=== PATIENT | male | born 1970 | race Caucasian/White ===

== ENCOUNTER 2018-06-18 13:50 | Emergency (ER) | payer BC, OTHER ==
[2018-06-18] MEDS ORDERED: MOTRIN 400 MG PO ONE (14:22)
[2018-06-18 14:27] VITALS: BP 118/78; PULSE 62; O2SAT 95
--- NOTE | 2018-06-18 14:27 | ERPHSYRPT ---
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 He denies fall , other injury, no headaches, neck pain, arm numbness or slurred speech. Occurred: just prior to arrival Method of Injury: other (lifting) Quality: constant Severity of Pain-Max: severe Severity of Pain-Current: severe Extremities Pain Location: arm: right Modifying Factors: Improves With: immobilization, movement Associated Symptoms: none Allergies/Adverse Reactions: No Known Drug Allergies Allergy (Verified 06/18/18 14:27) Home Medications: Losartan Potassium 50 mg [Cozaar 50 MG] 50 mg PO DAILY 06/18/18 [History] - Review of Systems Constitutional: No Symptoms Ears, Nose, & Throat: No Symptoms Respiratory: No Symptoms Cardiac: No Symptoms Abdominal/Gastrointestinal: No Symptoms Genitourinary Symptoms: No Symptoms Musculoskeletal: Other (right upper arm pain) Skin: No Symptoms Neurological: No Symptoms All Other Systems: Reviewed and Negative - Nursing Vital Signs Nursing Vital Signs: Initial Vital Signs Pulse Rate 62 06/18/18 14:13 Blood Pressure 118/78 06/18/18 14:13 O2 Sat by Pulse Oximetry 95 06/18/18 14:13 Pain Scale Pain Intensity 10 - Physical Exam General Appearance: no apparent distress Eyes, Ears, Nose, Throat Exam: normal ENT inspection Neck Exam: normal inspection, non-tender, supple, No JVD Cardiovascular/Respiratory Exam: chest non-tender, normal breath sounds, regular rate/rhythm, heart sounds normal, No no ecchymosis Abdominal Exam: non-tender Back Exam: normal inspection, No CVA tenderness Shoulder Exam: normal inspection, non-tender, pain (right upper arm: distal biceps area with a dent and localized tenderness, unable to flex elbow) Elbow/Forearm Exam: normal inspection Wrist Exam: normal inspection Neuro/Tendon Exam: normal motor functions Mental Status Exam: alert, oriented x 3, cooperative Skin Exam: normal color, warm, dry, No rash, No petechiae SpO2 Interpretation: normal O2 Delivery: Room Air - Course Nursing assessment & vital signs reviewed: Yes - Radiology Exams Right Humerus X-ray Interpretation: Interpreted by me, Negative Ordered Tests: Active Orders 24 hr Category Date Time Status Sling Application STAT Care 06/18/18 14:50 Ordered HUMERUS Stat Exams 06/18/18 14:22 Ordered Medication Summary Generic Name Dose Route Start Last Admin Trade Name Galilea PRN Reason Stop Dose Admin Cyclobenzaprine HCl 10 mg 06/18/18 14:49 Cyclobenzaprine 10 Mg PO 06/18/18 14:50 STAT ONE Discontinued Medications Generic Name Dose Route Start Last Admin Trade Name Freq PRN Reason Stop Dose Admin Ibuprofen 800 mg 06/18/18 14:22 Motrin 400 Mg PO 06/18/18 14:23 STAT ONE Ibuprofen Confirm 06/18/18 14:32 Motrin 400 Mg Administered 06/18/18 14:33 Dose 800 mg .ROUTE .STK-MED ONE - Progress Progress: improved Progress Note: 06/18/18 14:50 Pt was given Motrin 800 mg and Flexeril 10 mg , reviewed his X ray result, his right arm was placed in a sling, and discharged to rest with elevated arm, and follow up with Orthopedic surgeon at [facility], Orthopedic clinic, in [place] in 2 -3 days. Counseled pt/family regarding: diagnosis, need for follow-up (with Orthopedic surgeon), rad results - Departure Departure Disposition: Home Clinical Impression: Biceps rupture, distal Qualifiers: Encounter type: initial encounter Laterality: right Qualified Code(s): S46.211A - Strain of muscle, fascia and tendon of other parts of biceps, right arm, initial encounter Condition: Stable Critical Care Time: No Instructions: Biceps Tendinopathy Additional Instructions: Rest in sling x 3-4 days, apply ice or cold compresses to painful muscle, and follow up with Orthopedic surgeon in 2-3 days ( [facility] in [place] ) return if severe pain, swelling, sudden severe coldness, discoloration of the fingers! Prescriptions: Cyclobenzaprine HCl 10 mg [Cyclobenzaprine 10 MG] 10 mg PO TID #30 tablet Tramadol HCl 50 mg [Ultram 50 mg] 50 mg PO Q6H PRN #15 tablet PRN Reason: Pain
[2018-06-18] MEDS ORDERED: MOTRIN 400 MG ONE (14:32)
[2018-06-18] MEDS ORDERED: Cyclobenzaprine 10 MG PO ONE (14:49)
[2018-06-18] MEDS ORDERED: Cyclobenzaprine 10 MG ONE (14:57)
--- NOTE | 2018-06-18 20:01 | XRAY ---
Indication: Pain after lifting. Comparison: None 2 views of the right humerus demonstrate mild AC degenerative arthropathy. No other bony, articular, or soft tissue abnormalities.
== END 2018-06-18 15:38 | disposition home or self-care (01) ==
LOC: ED 13:50
DX: S46.211A Strain of muscle, fascia and tendon of other parts of biceps, right arm, initial encounter (principal); X50.9XXA Other and unspecified overexertion or strenuous movements or postures, initial encounter; Y93.89 Activity, other specified; R42 Dizziness and giddiness; M79.621 Pain in right upper arm
CPT/HCPCS: 73060; 99283; A9270-GY

== ENCOUNTER 2020-10-07 08:40 | Emergency (ER) | payer BC ==
[2020-10-07] MEDS ORDERED: Catapres 0.1 MG PO ONE (08:43)
[2020-10-07] MEDS ORDERED: Catapres 0.1 MG ONE (08:56)
[2020-10-07 09:11] LABS: Absolute Neutrophil Ct (ANC) 4.68 (1.4-6.9); BASOPHIL % 0.3 % (0.0-0.4); Basophil (Absolute #) 0.02 (0-0.4); Eosinophil % 4.1 % (0.00-5.0); Hematocrit 55.7 % (42-50); Hemoglobin 18.6 gm/dl (12.5-18.0); Lymphocyte (Absolute #) 1.48 (1.0-4.6); Lymphocytes % 20.3 % (24.0-44.0); Mean Corpuscular Hemoglobin 30.4 pg (26-32); Mean Corpuscular Hgb Concent. 33.4 g/dl (32-36); Mean Platelet Volume 11.7 fl (7.5-11.0); Monocyte (Absolute #) 0.81 (0.0-1.3); Monocytes % 11.1 % (0.0-12.0); Neutrophil % 64.2 % (36.0-66.0); Platelet Count 146 K/mm3 (150-450); Red Blood Count 6.12 M/mm3 (4.1-5.6); Red Cell Distribution Width 13.6 % (11.5-14.0); White Blood Count 7.3 K/mm3 (4.0-10.5)
--- NOTE | 2020-10-07 09:24 | XRAY ---
Indication: Cough. Comparison: None Portable apical lordotic chest demonstrates normal heart and lungs. Bony thorax intact.
[2020-10-07] MEDS ORDERED: DUONEB 0.5-3 MG/3 ml Neb IH ONE ×2 (09:32→09:39)
--- NOTE | 2020-10-07 09:32 | ERPHSYRPT ---
- History of Present Illness Source: patient, other () Exam Limitations: no limitations Patient Subjective Stated Complaint: Pt states "I have been sick since wednesday and I went to [facility] and they sent me here." Triage Nursing Assessment: Pt presented alert and oriented X 3, skin pwd Pt ambulates with an upright steady gait, able to speak in clear full sentences pt has congestion as well. Physician History: 50 yo wm w dyspnea x 3 days/cough x1wk, nonproductive/Did not get CV19/Denies N/V/D/melena/hematochezia/ w recent URI w neg CV19 test/Pt smokes 1ppd/Pt does feel some chest pressure wo radiation. Timing/Duration: other (1wk) Severity of Dyspnea-Max: moderate Severity of Dyspnea-Current: mild Possible Cause: occasional episodes Modifying Factors: Improves With: nothing Associated Symptoms: cough, chest pain/discomfort, wheezing, tightness, No edema, No fever, No insomnia, No loss of appetite, No lightheadedness, No weakness, No ankle swelling, No chills, No hemoptysis, No calf pain, No dizziness, No heaviness, No heart racing, No lightheadedness, No leg swelling, No muscle spasms feet, No muscle spasms hands, No painful breathing, No productive cough, No sweating, No tingling face Allergies/Adverse Reactions: No Known Drug Allergies Allergy (Verified 06/18/18 14:27) Home Medications: Lisinopril/Hydrochlorothiazide [Lisinopril-Hctz 20-12.5 mg Tab] 1 each PO DAILY 10/07/20 [History] Metoprolol Tartrate 100 mg PO DAILY 10/07/20 [History] Hx Tetanus, Diphtheria Vaccination/Date Given: No Hx Influenza Vaccination/Date Given: No Hx Pneumococcal Vaccination/Date Given: No Immunizations Up to Date: Yes Travel Risk - International Travel Have you traveled outside of the country in past 3 weeks: No - Coronavirus Screening Are you exhibiting any of the following symptoms?: No Close contact with a COVID-19 positive Pt in past 14-21 Days: No - Vaccine Status Have you recieved a Covid-19 vaccination: No - Review of Systems Constitutional: No Symptoms, No Fever, No Chills Eyes: No Symptoms Ears, Nose, & Throat: No Symptoms Respiratory: No Symptoms, Cough, Dyspnea, Dyspnea on Exertion (GARCIA), Wheezing Cardiac: No Symptoms, Chest Pain Abdominal/Gastrointestinal: No Symptoms Genitourinary Symptoms: No Symptoms Musculoskeletal: No Symptoms Skin: No Symptoms Neurological: No Symptoms Psychological: No Symptoms Endocrine: No Symptoms Hematologic/Lymphatic: No Symptoms Immunological/Allergic: No Symptoms - Past Medical History Pertinent Past Medical History: Yes Cardiac History: High Cholesterol, Hypertension - Past Surgical History Past Surgical History: Yes Other Surgical History: right arm - Social History Smoking Status: Current every day smoker How long have you smoked: years Exposure to second hand smoke: Yes Drug Use: marijuana Patient Lives Alone: No Significant Family History: no pertinent family hx - Nursing Vital Signs Nursing Vital Signs: Initial Vital Signs Temperature 97.8 F 10/07/20 08:40 Pulse Rate 84 10/07/20 08:40 Respiratory Rate 24 10/07/20 08:40 Blood Pressure 198/130 10/07/20 08:40 O2 Sat by Pulse Oximetry 97 10/07/20 08:40 Pain Scale Pain Intensity 0 Markedly hypertensive - Physical Exam General Appearance: no apparent distress Eye Exam: PERRL/EOMI, eyes nml inspection Ears, Nose, Throat Exam: hearing grossly normal, normal ENT inspection, normal pharynx Neck Exam: normal inspection, non-tender, supple, full range of motion, No Brudzinski, No Kernig's, No meningismus, No carotid bruit Respiratory Exam: airway intact, prolonged expirations, wheezing Cardiovascular/Chest Exam: normal heart sounds, normal peripheral pulses, No murmur Abdominal/Gastrointestinal Exam: soft, normal bowel sounds, No tenderness Extremity Exam: non-tender, normal range of motion, normal capillary refill Peripheral Pulses Exam: carotid (R): 2+, carotid (L): 2+ Neurologic Exam: alert, oriented x 3, 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, [employer]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, normal mood/affect, nml cerebellar function, nml station & gait, sensation nml Skin Exam: normal color, warm, dry, No rash Lymphatic Exam: No adenopathy SpO2 Interpretation: normal SpO2: 98 - Course Nursing assessment & vital signs reviewed: Yes EKG Interpreted by Me: RATE (NSR/R76/PVC's/LVH/Poor Rwave progression/Possible old inferior WA/Flipped Twave V6/Mildly prolonged QTc) - Radiology Exams Chest X-ray Interpretation: Discussed w/ radiologist (NAD) - CT Exams Chest CT Interpretation: Discussed w/radiologist (Old granulomatous dz/Nothing acute) Ordered Tests: Active Orders 24 hr Category Date Time Status EKG-ER Only STAT Care 10/07/20 08:56 Completed IV Insertion STAT Care 10/07/20 09:02 Completed CHEST 1 VIEW (PORTABLE) Stat Exams 10/07/20 08:56 Completed CHEST WITHOUT CONTRAST [CT] Stat Exams 10/07/20 10:23 Completed CBC W DIFF Stat Lab 10/07/20 09:07 Completed CMP Stat Lab 10/07/20 09:07 Completed D-DIMER QUANTITATIVE Stat Lab 10/07/20 09:30 Completed NT PRO BNP Stat Lab 10/07/20 09:07 Completed PROTIME WITH INR Stat Lab 10/07/20 09:07 Completed PTT Stat Lab 10/07/20 09:07 Completed TROPONIN Q3H Lab 10/07/20 09:07 Completed TROPONIN Q3H Lab 10/07/20 11:41 Completed Respiratory Therapy Assessment DAILY RT 10/07/20 09:48 Completed Medication Summary Discontinued Medications Generic Name Dose Route Start Last Admin Trade Name Freq PRN Reason Stop Dose Admin Albuterol/Ipratropium 3 ml 10/07/20 09:32 10/07/20 09:43 Duoneb 0.5-3 Mg/3 Ml Neb IH 10/07/20 09:33 3 ml STAT ONE Administration Albuterol/Ipratropium Confirm 10/07/20 09:39 Duoneb 0.5-3 Mg/3 Ml Neb Administered 10/07/20 09:40 Dose 3 ml IH .STK-MED ONE Clonidine 0.2 mg 10/07/20 08:43 10/07/20 08:57 Catapres 0.1 Mg PO 10/07/20 08:44 0.2 mg STAT ONE Administration Clonidine Confirm 10/07/20 08:56 Catapres 0.1 Mg Administered 10/07/20 08:57 Dose 0.2 mg .ROUTE .STK-MED ONE Methylprednisolone Sodium Succinate 125 mg 10/07/20 12:32 10/07/20 12:42 Solu-Medrol 40 Mg IV 10/07/20 12:33 Not Given STAT ONE Prednisone 60 mg 10/07/20 12:42 10/07/20 12:48 Deltasone 20 Mg PO 10/07/20 12:43 60 mg STAT ONE Administration Prednisone Confirm 10/07/20 12:48 Deltasone 20 Mg Administered 10/07/20 12:49 Dose 60 mg .ROUTE .STK-MED ONE Lab/Rad Data: Laboratory Result Diagrams 10/07/20 09:07 10/07/20 09:07 Laboratory Results 10/07/20 10/07/20 10/07/20 Range/Units 11:41 09:30 09:07 WBC (4.0-10.5) K/mm3 RBC (4.1-5.6) M/mm3 Hgb (12.5-18.0) gm/dl Hct (42-50) % MCV (78-100) fl MCH (26-32) pg MCHC (32-36) g/dl RDW (11.5-14.0) % Plt Count (150-450) K/mm3 MPV (7.5-11.0) fl Gran % (36.0-66.0) % Eos # (Auto) (0-0.5) Absolute Lymphs (auto) (1.0-4.6) Absolute Monos (auto) (0.0-1.3) Lymphocytes % (24.0-44.0) % Monocytes % (0.0-12.0) % Eosinophils % (0.00-5.0) % Basophils % (0.0-0.4) % Absolute Granulocytes (1.4-6.9) Basophils # (0-0.4) PT (9.4-12.5) SECONDS INR (0.8-3.0) APTT (25.1-36.5) SECONDS D-Dimer 427 (215-500) ng/mL Sodium (137-145) mmol/L Potassium (3.5-5.1) mmol/L Chloride (98-107) mmol/L Carbon Dioxide (22-30) mmol/L Anion Gap (5-15) MEQ/L BUN (9-20) mg/dL Creatinine (0.66-1.25) mg/dL Estimated GFR ML/MIN Glucose (74-106) mg/dL Calcium (8.4-10.2) mg/dL Total Bilirubin (0.2-1.3) mg/dL AST (17-59) U/L ALT (0-50) U/L Alkaline Phosphatase (38-126) U/L Troponin I < 0.012 0.014 (0.000-0.034) ng/mL NT-Pro-B Natriuret Pep (0-450) pg/mL Serum Total Protein (6.3-8.2) g/dL Albumin (3.5-5.0) g/dL 10/07/20 10/07/20 10/07/20 Range/Units 09:07 09:07 09:07 WBC 7.3 (4.0-10.5) K/mm3 RBC 6.12 H* (4.1-5.6) M/mm3 Hgb 18.6 H (12.5-18.0) gm/dl Hct 55.7 H (42-50) % MCV 91.0 (78-100) fl MCH 30.4 (26-32) pg MCHC 33.4 (32-36) g/dl RDW 13.6 (11.5-14.0) % Plt Count 146 L (150-450) K/mm3 MPV 11.7 H (7.5-11.0) fl Gran % 64.2 (36.0-66.0) % Eos # (Auto) 0.30 (0-0.5) Absolute Lymphs (auto) 1.48 (1.0-4.6) Absolute Monos (auto) 0.81 (0.0-1.3) Lymphocytes % 20.3 L (24.0-44.0) % Monocytes % 11.1 (0.0-12.0) % Eosinophils % 4.1 (0.00-5.0) % Basophils % 0.3 (0.0-0.4) % Absolute Granulocytes 4.68 (1.4-6.9) Basophils # 0.02 (0-0.4) PT 12.2 (9.4-12.5) SECONDS INR 1.03 (0.8-3.0) APTT 40.6 H (25.1-36.5) SECONDS D-Dimer (215-500) ng/mL Sodium 144 (137-145) mmol/L Potassium 4.4 (3.5-5.1) mmol/L Chloride 103 (98-107) mmol/L Carbon Dioxide 27 (22-30) mmol/L Anion Gap 18.3 H (5-15) MEQ/L BUN 19 (9-20) mg/dL Creatinine 0.87 (0.66-1.25) mg/dL Estimated GFR > 60.0 ML/MIN Glucose 94 (74-106) mg/dL Calcium 9.8 (8.4-10.2) mg/dL Total Bilirubin 0.40 (0.2-1.3) mg/dL AST 37 (17-59) U/L ALT 41 (0-50) U/L Alkaline Phosphatase 82 (38-126) U/L Troponin I (0.000-0.034) ng/mL NT-Pro-B Natriuret Pep 625 H (0-450) pg/mL Serum Total Protein 8.3 H (6.3-8.2) g/dL Albumin 4.8 (3.5-5.0) g/dL - Progress Progress: improved Progress Note: 10/07/20 20:06 BP improved w 0.2 po Clonidine Trop neg x2 Lungs clearer after Combivent tx Counseled pt/family regarding: lab results, diagnosis, need for follow-up, rad results, smoking cessation - Departure Departure Disposition: Home Clinical Impression: Bronchitis, Hypertension, COPD (chronic obstructive pulmonary disease), Congestive heart failure (CHF) Condition: Stable Critical Care Time: No Referrals: SANAZ WINSTON [Primary Care Provider] - Instructions: Heart Failure, Chronic Obstructive Pulmonary Disease, Heart Failure, Adult (DC), High Blood Pressure (DC), Shortness of Breath (Dyspnea) (DC), Exacerbation of COPD (DC) Additional Instructions: Follow up with Dr. Altamirano in 1-2 days Return to ER for increasing shortness of breath or chest pain Doxycycline twice a day Prednisone twice a day for 5 days Losarten-Hct once a day Combivent 2 puffs every 4 hours as needed for shortness of breath Pulmicort inhaler 2 puffs twice a day(if you get really short of breath use your Combivent inhaler) Quit smoking Prescriptions: Ipratropium/Albuterol Sulfate [Combivent Inhaler] 15 gm IH Q4H PRN PRN #1 aer.w.adap PRN Reason: Shortness Of Breath/Wheezing Doxycycline Monohydrate 100 mg PO BID #20 tablet Losartan/Hydrochlorothiazide [Losartan-Hctz 50-12.5 mg Tab] 1 each PO DAILY #30 tablet Prednisone 10 mg PO BID 5 Days #10 tablet Budesonide [Pulmicort] 0.25 mg IH BID #1 ml
[2020-10-07 09:37] LABS: INR 1.03 (0.8-3.0); PROTIME 12.2 SECONDS (9.4-12.5)
[2020-10-07 09:39] LABS: PTT 40.6 SECONDS (25.1-36.5)
[2020-10-07 09:49] LABS: ALBUMIN 4.8 g/dL (3.5-5.0); ALKALINE PHOSPHATASE 82 U/L (38-126); ANION GAP 18.3 MEQ/L (5-15); BLOOD UREA NITROGEN 19 mg/dL (9-20); CHLORIDE 103 mmol/L (98-107); Calcium 9.8 mg/dL (8.4-10.2); Carbon Dioxide 27 mmol/L (22-30); Creatinine 1 0.87 mg/dL (0.66-1.25); EST GLOMERULAR FILTRATION RATE > 60.0 ML/MIN; Glucose 94 mg/dL (74-106); NT PRO BNP 625 pg/mL (0-450); Potassium 4.4 mmol/L (3.5-5.1); SGOT/AST 37 U/L (17-59); SGPT/ALT 41 U/L (0-50); SODIUM 144 mmol/L (137-145); Total Protein 8.3 g/dL (6.3-8.2)
--- NOTE | 2020-10-07 11:14 | XRAY ---
Indication: Dyspnea, short of breath, cough, congestion. Multiple contiguous axial images obtained through the chest without contrast. Comparison: None Lungs demonstrate minimal bibasilar fibrosis/scarring and tiny left base calcified granuloma. No suspicious pulmonary mass, infiltrate, effusion, or pneumothorax. Heart is not enlarged. Aorta normal in course and caliber. Tiny left hilar calcified node. No pathologic mediastinal lymphadenopathy. Bony thorax intact. Limited upper abdomen demonstrates incompletely visualized 2.7 cm probable right renal exophytic cyst. Impression: 1. Evidence for old granulomatous disease and incompletely visualized probable right renal exophytic cyst. 2. Remaining CT chest without contrast exam is negative.
[2020-10-07] MEDS ORDERED: solu-MEDROL 40 MG IV ONE (12:32)
[2020-10-07] MEDS ORDERED: DELTASONE 20 MG PO ONE (12:42)
[2020-10-07] MEDS ORDERED: DELTASONE 20 MG ONE (12:48)
[2020-10-07 13:14] VITALS: BP 131/90; PULSE 88
[2020-10-07 20:07] VITALS: O2SAT 98
== END 2020-10-07 13:05 | disposition home or self-care (01) ==
LOC: ED 08:40
DX: J40 Bronchitis, not specified as acute or chronic (principal); I10 Essential (primary) hypertension; J44.9 Chronic obstructive pulmonary disease, unspecified; I50.9 Heart failure, unspecified
CPT/HCPCS: 36415; 71045; 71250; 80053; 83880; 84484; 85025; 85379; 85610; 85730; 93005; 94640; 99284; A9270-GY

== ENCOUNTER 2021-08-21 01:37 | Observation (INO) | payer BC ==
[2021-08-21] MEDS ORDERED: solu-MEDROL 125 MG, Sterile H2O 10 ml 2 ML IV ONE ×2 (02:06)
[2021-08-21] MEDS ORDERED: DUONEB 0.5-3 MG/3 ml Neb IH ONE ×2 (02:06→02:11)
[2021-08-21] MEDS ORDERED: Sterile H2O 10 ml IJ ONE (02:08)
[2021-08-21] MEDS ORDERED: solu-MEDROL ONE ×2 (02:08→22:47)
[2021-08-21] MEDS ORDERED: Magnesium 1 Gm / 100 Ml D5W*** 200 ML IV ONE (02:10)
[2021-08-21] MEDS: Magnesium 1 Gm / 100 Ml D5W*** 100 ML IV SCH ×2 (02:11→03:30)
[2021-08-21 02:16] LABS: Absolute Neutrophil Ct (ANC) 5.63 x10^3/uL (1.4-6.9); Basophil (Absolute #) 0.03 x10^3/uL (0-0.4); Eosinophil (Absolute #) 0.15 x10^3/uL (0-0.5); Hemoglobin 17.7 g/dL (12.5-18.0); Lymphocyte (Absolute #) 0.71 x10^3/uL (1.0-4.6); Lymphocytes % 9.5 % (24.0-44.0); Mean Cell Volume 93.1 fL (78-100); Mean Corpuscular Hemoglobin 30.5 pg (26-32); Mean Corpuscular Hgb Concent. 32.8 g/dL (32-36); Mean Platelet Volume 10.7 fL (7.5-11.0); Monocyte (Absolute #) 0.94 x10^3/uL (0.0-1.3); Monocytes % 12.6 % (0.0-12.0); Neutrophil % 75.2 % (36.0-66.0); Platelet Count 155 x10^3/uL (150-450); Red Cell Distribution Width 12.9 % (11.5-14.0); White Blood Count 7.5 x10^3/uL (4.0-10.5)
--- NOTE | 2021-08-21 02:20 | ERPHSYRPT ---
- History of Present Illness Time Seen by Provider: 08/21/21 01:45 Source: patient Exam Limitations: no limitations Patient Subjective Stated Complaint: pt states he has had shortness of breath and cough for last 2 days. Triage Nursing Assessment: pt alert and oriented, answers questions approp. pt ambulatory with steady gait noted. pt short of breath with exertion. able to speak in full sentences without diff. exp wheeze noted bilat throughout. skin warm and dry Physician History: Patient is a 51-year-old male history of smoking presents to our ED with complaints of a 2-day history of shortness of breath and cough. Shortness of breath worse with exertion. No associated chest pain. Patient observed to have audible wheezing upon presentation. However patient able to speak complete sentences. Patient appears comfortable at rest. No acute respiratory distress. at bedside. Patient is a smoker. Patient has COPD. believes he may have a history of CHF but is not sure. Patient's symptoms are progressive. Symptoms are moderate in intensity. No specific worsening improving factors. 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 Patient otherwise feels well. No associated nausea vomiting. No fever. No diarrhea. No rash. Patient voices no other complaints or concerns at this time. Timing/Duration: yesterday Activities at Onset: activity Severity of Dyspnea-Max: moderate Severity of Dyspnea-Current: mild Possible Cause: unknown cause Modifying Factors: Improves With: activity Associated Symptoms: cough, wheezing, No chest pain/discomfort, No edema, No fever, No ankle swelling, No hemoptysis, No dizziness, No heaviness, No heart racing, No muscle spasms hands, No painful breathing, No sweating Allergies/Adverse Reactions: No Known Drug Allergies Allergy (Verified 08/21/21 01:57) Home Medications: Metoprolol Tartrate 100 mg PO DAILY 10/07/20 [History] Albuterol Sulfate [Albuterol Sulfate Hfa] 8.5 gm IH Q4H PRN PRN 08/21/21 [History] Hx Tetanus, Diphtheria Vaccination/Date Given: No Hx Influenza Vaccination/Date Given: No Hx Pneumococcal Vaccination/Date Given: No Immunizations Up to Date: No Travel Risk - International Travel Have you traveled outside of the country in past 3 weeks: No - Coronavirus Screening Are you exhibiting any of the following symptoms?: Yes Symptoms: Cough: New Onset, Shortness of Breath Close contact with a COVID-19 positive Pt in past 14-21 Days: No - Vaccine Status Have you recieved a Covid-19 vaccination: No - Review of Systems Constitutional: No Symptoms, No Fever, No Chills Eyes: No Symptoms Ears, Nose, & Throat: No Symptoms Respiratory: No Symptoms, No Cough, No Dyspnea Cardiac: No Symptoms, No Chest Pain, No Edema, No Syncope Abdominal/Gastrointestinal: No Symptoms, No Abdominal Pain, No Nausea, No Vomiting, No Diarrhea Genitourinary Symptoms: No Symptoms, No Dysuria Musculoskeletal: No Symptoms, No Back Pain, No Neck Pain Skin: No Symptoms, No Rash Neurological: No Symptoms, No Dizziness, No Focal Weakness, No Sensory Changes Psychological: No Symptoms Endocrine: No Symptoms Hematologic/Lymphatic: No Symptoms Immunological/Allergic: No Symptoms All Other Systems: Reviewed and Negative - Past Medical History Pertinent Past Medical History: Yes Cardiac History: Congestive Heart Failure, High Cholesterol, Hypertension Respiratory History: COPD - Past Surgical History Past Surgical History: Yes Other Surgical History: right arm - Social History Smoking Status: Current every day smoker How long have you smoked: 36 yrs Exposure to second hand smoke: Yes Drug Use: marijuana Patient Lives Alone: No Significant Family History: no pertinent family hx - Nursing Vital Signs Nursing Vital Signs: Initial Vital Signs Temperature 97.3 F 08/21/21 01:39 Pulse Rate 89 08/21/21 01:39 Respiratory Rate 20 08/21/21 01:39 Blood Pressure 179/126 08/21/21 01:39 O2 Sat by Pulse Oximetry 96 08/21/21 01:39 Pain Scale Pain Intensity 0 - Physical Exam General Appearance: no apparent distress, alert Eye Exam: PERRL/EOMI Ears, Nose, Throat Exam: hearing grossly normal, normal ENT inspection, normal pharynx Neck Exam: normal inspection, non-tender, supple, full range of motion Respiratory Exam: normal breath sounds, airway intact, diminished breath sounds, wheezing (Expiratory wheezing), No respiratory distress Cardiovascular/Chest Exam: normal heart sounds, regular rate/rhythm Abdominal/Gastrointestinal Exam: soft, No tenderness, No distention, No mass Extremity Exam: non-tender, normal range of motion, normal inspection, no calf tenderness, no pedal edema Peripheral Pulses Exam: dorsalis-pedis (R): 2+, dorsalis-pedis (L): 2+ Neurologic Exam: alert, oriented x 3, 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 Otherwise clear lung rouse normal cardiac silhouette intact bony thorax) Ordered Tests: Active Orders 24 hr Category Date Time Status High Raw Sugar Boiler STAT Care 08/21/21 02:05 Active EKG-ER Only STAT Care 08/21/21 02:04 Active IV Insertion STAT Care 08/21/21 02:04 Active Pulse Oximetry (ED) STAT Care 08/21/21 02:04 Active CHEST 1 VIEW (PORTABLE) Stat Exams 08/21/21 03:01 Taken BLOOD CULTURE Stat Lab 08/21/21 02:40 Received CBC W DIFF Stat Lab 08/21/21 02:04 Completed CMP Stat Lab 08/21/21 02:04 Completed D-DIMER QUANTITATIVE Stat Lab 08/21/21 02:04 Completed NT PRO BNP Stat Lab 08/21/21 02:04 Completed TROPONIN Q3H Lab 08/21/21 02:15 Completed TROPONIN Q3H Lab 08/21/21 05:30 Completed TROPONIN Q3H Lab 08/21/21 08:15 Ordered TROPONIN Q3H Lab 08/21/21 11:15 Ordered TROPONIN Q3H Lab 08/21/21 14:15 Ordered Respiratory Therapy Assessment DAILY RT 08/21/21 02:31 Active Transfer Order Routine Transfer 08/21/21 Ordered Medication Summary Generic Name Dose Route Start Last Admin Trade Name Freq PRN Reason Stop Dose Admin Magnesium Sulfate/Dextrose 100 mls @ 100 mls/hr 08/21/21 02:15 08/21/21 03:30 Magnesium 1 Gm / 100 Ml D5w IV 08/21/21 04:14 100 mls/hr Q1H JAMES Administration Ceftriaxone Sodium/Dextrose 2 g in 50 mls @ 100 mls/hr 08/21/21 05:53 08/21/21 06:06 Rocephin 2 Gm-D5w 50ml Bag IV 08/21/21 06:22 100 ml/hr STAT STA 100 mls/hr Administration Azithromycin 500 mg in 250 mls @ 250 mls/hr 08/21/21 05:53 Zithromax 500 Mg/ 250 Ml Nacl Premix IV 08/21/21 06:52 STAT STA Discontinued Medications Generic Name Dose Route Start Last Admin Trade Name Galilea PRN Reason Stop Dose Admin Albuterol/Ipratropium 3 ml 08/21/21 02:06 08/21/21 02:10 Ipratropium/Albuterol Sulfate 3 Ml Ampul.Neb IH 08/21/21 02:07 3 ml STAT ONE Administration Albuterol/Ipratropium Confirm 08/21/21 02:11 Ipratropium/Albuterol Sulfate 3 Ml Ampul.Neb Administered 08/21/21 02:12 Dose 3 ml IH .STK-MED ONE Methylprednisolone Sodium 0 mg 08/21/21 02:06 08/21/21 02:09 Succinate 125 mg/ Sterile IV 08/21/21 02:07 125 mg Water 2 ml STAT ONE Administration Furosemide 20 mg 08/21/21 03:22 08/21/21 03:32 Furosemide 20 Mg/Vial IV 08/21/21 03:23 Not Given ONCE STA Furosemide Confirm 08/21/21 03:30 Furosemide 40 Mg/4 Ml Vial Administered 08/21/21 03:31 Dose 40 mg .ROUTE .STK-MED ONE Furosemide 20 mg 08/21/21 03:32 08/21/21 03:33 Furosemide 40 Mg/4 Ml Vial IV 08/21/21 03:33 20 mg STAT ONE Administration Ceftriaxone Sodium/Dextrose Confirm 08/21/21 06:03 Rocephin 2 Gm-D5w 50ml Bag Administered 08/21/21 06:04 Dose 2 g in 50 mls @ ud IV .STK-MED ONE Methylprednisolone Sodium Succinate Confirm 08/21/21 02:08 Methylprednis Sod Succ 125 Mg/2 Ml Vial Administered 08/21/21 02:09 Dose 125 mg .ROUTE .STK-MED ONE Sterile Water Confirm 08/21/21 02:08 Water For Injection,Sterile 10 Ml Vial Administered 08/21/21 02:09 Dose 10 ml IJ .STK-MED ONE Lab/Rad Data: Laboratory Result Diagrams 08/21/21 02:04 08/21/21 02:04 Laboratory Results 06/12/0408/21/21 08/21/21 Range/Units 05:30 03:35 02:15 WBC (4.0-10.5) x10^3/uL RBC (4.1-5.6) x10^6/uL Hgb (12.5-18.0) g/dL Hct (42-50) % MCV (78-100) fL MCH (26-32) pg MCHC (32-36) g/dL RDW (11.5-14.0) % Plt Count (150-450) x10^3/uL MPV (7.5-11.0) fL Gran % (36.0-66.0) % Immature Gran % (Auto) (0.00-0.4) % Nucleat RBC Rel Count (0.00-0.1) % Eos # (Auto) (0-0.5) x10^3/uL Immature Gran # (Auto) (0.00-0.03) x10^3u/L Absolute Lymphs (auto) (1.0-4.6) x10^3/uL Absolute Monos (auto) (0.0-1.3) x10^3/uL Absolute Nucleated RBC (0.00-0.01) x10^3u/L Lymphocytes % (24.0-44.0) % Monocytes % (0.0-12.0) % Eosinophils % (0.00-5.0) % Basophils % (0.0-0.4) % Absolute Granulocytes (1.4-6.9) x10^3/uL Basophils # (0-0.4) x10^3/uL D-Dimer (0.0-0.50) mg/L Sodium (137-145) mmol/L Potassium (3.5-5.1) mmol/L Chloride (98-107) mmol/L Carbon Dioxide (22-30) mmol/L Anion Gap (5-15) MEQ/L BUN (9-20) mg/dL Creatinine (0.66-1.25) mg/dL Estimated GFR ML/MIN Glucose (74-106) mg/dL Calcium (8.4-10.2) mg/dL Total Bilirubin (0.2-1.3) mg/dL AST (17-59) U/L ALT (0-50) U/L Alkaline Phosphatase (38-126) U/L Troponin I 0.020 0.025 (0.000-0.034) ng/mL NT-Pro-B Natriuret Pep (0-450) pg/mL Serum Total Protein (6.3-8.2) g/dL Albumin (3.5-5.0) g/dL Influenza Type A Ag NEGATIVE (NEGATIVE) Influenza Type B Ag NEGATIVE (NEGATIVE) RSV (PCR) NEGATIVE (Negative) SARS-CoV-2 (PCR) NEGATIVE (NEGATIVE) 08/21/21 08/21/21 08/21/21 Range/Units 02:04 02:04 02:04 WBC 7.5 (4.0-10.5) x10^3/uL RBC 5.80 H (4.1-5.6) x10^6/uL Hgb 17.7 (12.5-18.0) g/dL Hct 54.0 H (42-50) % MCV 93.1 (78-100) fL MCH 30.5 (26-32) pg MCHC 32.8 (32-36) g/dL RDW 12.9 (11.5-14.0) % Plt Count 155 (150-450) x10^3/uL MPV 10.7 (7.5-11.0) fL Gran % 75.2 H (36.0-66.0) % Immature Gran % (Auto) 0.3 (0.00-0.4) % Nucleat RBC Rel Count 0.0 (0.00-0.1) % Eos # (Auto) 0.15 (0-0.5) x10^3/uL Immature Gran # (Auto) 0.02 (0.00-0.03) x10^3u/L Absolute Lymphs (auto) 0.71 L (1.0-4.6) x10^3/uL Absolute Monos (auto) 0.94 (0.0-1.3) x10^3/uL Absolute Nucleated RBC 0.00 (0.00-0.01) x10^3u/L Lymphocytes % 9.5 L (24.0-44.0) % Monocytes % 12.6 H (0.0-12.0) % Eosinophils % 2.0 (0.00-5.0) % Basophils % 0.4 (0.0-0.4) % Absolute Granulocytes 5.63 (1.4-6.9) x10^3/uL Basophils # 0.03 (0-0.4) x10^3/uL D-Dimer 0.28 (0.0-0.50) mg/L Sodium 142 (137-145) mmol/L Potassium 3.9 (3.5-5.1) mmol/L Chloride 103 (98-107) mmol/L Carbon Dioxide 30 (22-30) mmol/L Anion Gap 12.1 (5-15) MEQ/L BUN 17 (9-20) mg/dL Creatinine 0.94 (0.66-1.25) mg/dL Estimated GFR > 60.0 ML/MIN Glucose 127 H (74-106) mg/dL Calcium 9.3 (8.4-10.2) mg/dL Total Bilirubin 0.60 (0.2-1.3) mg/dL AST 35 (17-59) U/L ALT 30 (0-50) U/L Alkaline Phosphatase 74 (38-126) U/L Troponin I (0.000-0.034) ng/mL NT-Pro-B Natriuret Pep 635 H (0-450) pg/mL Serum Total Protein 8.1 (6.3-8.2) g/dL Albumin 4.6 (3.5-5.0) g/dL Influenza Type A Ag (NEGATIVE) Influenza Type B Ag (NEGATIVE) RSV (PCR) (Negative) SARS-CoV-2 (PCR) (NEGATIVE) - Progress Progress: improved Air Movement: good Progress Note: Patient 51-year-old male presents to our ED for shortness of breath. Patient has a history of CHF per his . Patient also has a history of COPD. Patient presented to our ED mildly hypoxic. BNP slightly elevated. Troponin slightly elevated however not technically positive. Patient received a dose of Lasix and breathing treatments. Solu-Medrol administered. Patient will require admission for further evaluation and treatment of shortness of breath. Case discussed with Dr. Hampton covering Dr. Altamirano who accepts admission to observation. Plan of care discussed with patient. He agrees to admission [facility] for further evaluation and treatment. Portions of this note were created with voice recognition technology. There may be grammatical, spelling, punctuation or sound alike errors 08/21/21 05:54 Blood Culture(s) Obtained: Yes Antibiotics given: Yes Discussed with : Jose Will see patient in: hospital (observation) Counseled pt/family regarding: lab results, diagnosis, rad results - Departure Departure Disposition: Observation Clinical Impression: Shortness of breath, Hypoxia, COPD exacerbation, Elevated brain natriuretic peptide (BNP) level Condition: Stable Critical Care Time: No Referrals: SANAZ WINSTON [NON-STAFF PHY W/O PRIVILEGES] - Follow up/PCP as directed Instructions: Chronic Obstructive Pulmonary Disease
[2021-08-21 02:38] LABS: ALBUMIN 4.6 g/dL (3.5-5.0); ALKALINE PHOSPHATASE 74 U/L (38-126); ANION GAP 12.1 MEQ/L (5-15); BLOOD UREA NITROGEN 17 mg/dL (9-20); CHLORIDE 103 mmol/L (98-107); Calcium 9.3 mg/dL (8.4-10.2); Carbon Dioxide 30 mmol/L (22-30); Creatinine 1 0.94 mg/dL (0.66-1.25); EST GLOMERULAR FILTRATION RATE > 60.0 ML/MIN; Glucose 127 mg/dL (74-106); NT PRO BNP 635 pg/mL (0-450); Potassium 3.9 mmol/L (3.5-5.1); SGOT/AST 35 U/L (17-59); SGPT/ALT 30 U/L (0-50); SODIUM 142 mmol/L (137-145); Total Protein 8.1 g/dL (6.3-8.2)
[2021-08-21] MEDS ORDERED: Lasix 20 MG/2 ML IV STA (03:22)
[2021-08-21] MEDS ORDERED: Lasix 40 MG/4 ML ONE (03:30)
[2021-08-21] MEDS ORDERED: Lasix 40 MG/4 ML IV ONE (03:32)
[2021-08-21 04:31] LABS: INFLUENZA A NEGATIVE (NEGATIVE); INFLUENZA B NEGATIVE (NEGATIVE); RESPIRATORY SYNCTIAL VIRUS NEGATIVE (Negative); SARS-CoV-2 Xpert Express NEGATIVE (NEGATIVE)
[2021-08-21] MEDS ORDERED: ROCEPHIN 2 Gm-D5w 50ML BAG** 2 G/50 ML IVPB IV STA (05:53)
[2021-08-21] MEDS ORDERED: Zithromax 500 MG/ 250 ML NaCl Premix 500 MG/250 ML IVPB IV STA (05:53)
[2021-08-21] MEDS ORDERED: ROCEPHIN 2 Gm-D5w 50ML BAG** 2 G/50 ML IVPB IV ONE (06:03)
[2021-08-21] MEDS ORDERED: Zithromax 500 MG/ 250 ML NaCl Premix 500 MG/250 ML IVPB IV ONE (06:12)
[2021-08-21] MEDS ORDERED: PROVENTIL 2.5 MG/3 ML NEB IH SCH (07:57)
[2021-08-21] MEDS ORDERED: PROVENTIL 2.5 MG/3 ML NEB IH PRN (08:09)
--- NOTE | 2021-08-21 08:54 | XRAY ---
Indication: Short of breath. Comparison: October 07, 2020. Portable apical lordotic chest remains clear. Heart not enlarged. Bony thorax intact. No new/acute findings.
[2021-08-21] MEDS ORDERED: VENTOLIN COMMON CANISTER IH PRN (09:04)
[2021-08-21] MEDS ORDERED: NON-FORMULARY ITEM (Budesonide/Formoterol Fumarate [Budesonide-Formoterol 160-4.5] 10.2 GM IH PRN (09:04)
[2021-08-21] MEDS ORDERED: MEDICATION INTERVENTION MC SCH (09:15)
[2021-08-21] MEDS: Nicoderm CQ 21 MG TOP SCH (09:53)
[2021-08-21] MEDS: Cozaar 50 MG PO SCH (09:54)
[2021-08-21] MEDS: Lopressor 50 MG PO SCH (09:54)
[2021-08-21] MEDS: hydroDIURIL 25 MG PO SCH (09:54)
[2021-08-21] MEDS ORDERED: NON-FORMULARY ITEM (Metoprolol Tartrate [Metoprolol Tartrate] 100 MG Tablet) PO SCH (10:00)
[2021-08-21] MEDS ORDERED: NON-FORMULARY ITEM (Losartan/Hydrochlorothiazide [Losartan-Hctz 50-12.5 Mg Tab] 1 EACH Tab PO SCH (10:00)
[2021-08-21] MEDS: solu-MEDROL 60 MG, Sterile H2O 10 ml 2 ML IV SCH ×6 (11:41→22:53)
[2021-08-21] MEDS ORDERED: APRESOLINE 20 MG/ML INJ IV PRN (16:48)
[2021-08-21] MEDS: Protonix 40MG Tablet PO SCH (17:00)
[2021-08-21] MEDS: DUONEB 0.5-3 MG/3 ml Neb IH SCH ×2 (18:38→22:50)
[2021-08-22] MEDS: DUONEB 0.5-3 MG/3 ml Neb IH SCH ×2 (03:09→07:02)
[2021-08-22] MEDS: solu-MEDROL 60 MG, Sterile H2O 10 ml 2 ML IV SCH ×2 (05:16)
[2021-08-22 05:20] LABS: Hematocrit 57.6 % (42-50); Hemoglobin 18.5 g/dL (12.5-18.0); Mean Cell Volume 94.1 fL (78-100); Mean Corpuscular Hemoglobin 30.2 pg (26-32); Mean Corpuscular Hgb Concent. 32.1 g/dL (32-36); Platelet Count 193 x10^3/uL (150-450); Red Blood Count 6.12 x10^6/uL (4.1-5.6); White Blood Count 8.7 x10^3/uL (4.0-10.5)
[2021-08-22 05:58] LABS: ALBUMIN 4.7 g/dL (3.5-5.0); ALKALINE PHOSPHATASE 70 U/L (38-126); BLOOD UREA NITROGEN 23 mg/dL (9-20); CHLORIDE 101 mmol/L (98-107); Carbon Dioxide 26 mmol/L (22-30); Creatinine 1 0.98 mg/dL (0.66-1.25); EST GLOMERULAR FILTRATION RATE > 60.0 ML/MIN; Glucose 164 mg/dL (74-106); Potassium 3.4 mmol/L (3.5-5.1); SGOT/AST 34 U/L (17-59); SGPT/ALT 31 U/L (0-50); SODIUM 147 mmol/L (137-145); Total Protein 8.2 g/dL (6.3-8.2)
[2021-08-22 07:17] VITALS: BP 135/87; PULSE 71; O2SAT 93
[2021-08-22] MEDS: Protonix 40MG Tablet PO SCH (08:13)
[2021-08-22] MEDS: hydroDIURIL 25 MG PO SCH (08:13)
[2021-08-22] MEDS: Cozaar 50 MG PO SCH (08:13)
[2021-08-22] MEDS: Nicoderm CQ 21 MG TOP SCH (08:14)
[2021-08-22] MEDS: Lopressor 50 MG PO SCH (08:14)
[2021-08-22] MEDS ORDERED: Zithromax 500 MG/ 250 ML NaCl Premix 500 MG/250 ML IVPB IV SCH (10:00)
[2021-08-22] MEDS ORDERED: ROCEPHIN 1 Gm-D5w 50 ml Bag** 1 G/50 ML IVPB IV SCH (10:00)
--- NOTE | 2021-08-22 10:58 | SSS ---
DISCHARGE DIAGNOSES: 1) CHRONIC OBSTRUCTIVE PULMONARY DISEASE EXACERBATION. 2) HYPERTENSION. 3) LEFT VENTRICULAR HYPERTROPHY. HISTORY: The patient is a 51-year-old white male patient who presented to the emergency room with complaints of shortness of breath. He was noted to have significant hypertension. The patient was last seen in the office probably over a year ago. He ran out of his medications in January but has not been back to refill his medication. The patient does smoke on a regular basis. He developed a bit of a cough and shortness of breath and was seen in the emergency room. He had slight hypoxia initially with some wheezing. He was given Solu-Medrol, Rocephin and Zithromax and admitted to the hospital for further evaluation and management. PAST MEDICAL/SURGICAL HISTORY: Hypertension and smoking usage. He is otherwise a healthy fellow. HOME MEDICATIONS: His medications prior to running out of them were: Albuterol on PRN basis for his chronic obstructive pulmonary disease exacerbations. He had budesonide/formoterol inhaler at home as well. He takes Losartan/hydrochlorothiazide 50/12.5 mg, metoprolol 100 mg daily but again he has not been taking these for the last at least six months. ALLERGIES: NKDA. PHYSICAL EXAMINATION: Revealed a well-nourished, well-developed 51 -year-old white male patient. He is alert and oriented x3. CHEST: Essentially clear now after breathing treatment and his oxygen levels are in the good range without supplemental oxygen. HEART: Regular rate and rhythm. ABDOMEN: Soft. No palpable masses. EXTREMITIES: Without cyanosis, clubbing or edema. NEUROLOGIC: The patient is alert and oriented x3. No focal deficits. HOSPITAL COURSE: The patient was admitted to the medicine agrawal. He was given medications to be started on again. He was still somewhat hypertensive however and required hydralazine 20 mg IV one time after which by the next morning his blood pressure at the lowest noted to be 134 systolic. The patient's laboratory studies showed his potassium to be slightly low at 3.4 after reinstituting his medications. He will be followed up in the office in the next week. He was instructed to monitor his blood pressure. He was given hydralazine additional to his usual medications at 25 mg every six hours a day for systolic blood pressure reaching 180 or above. He is to call me if he has any problems in the interim.
== END 2021-08-22 09:00 | disposition home or self-care (01) ==
LOC: ED 01:37 → MED SURG 07:55
PROVIDERS: ADMIT Family Medicine; ATTEND Family Medicine
DX: J44.1 Chronic obstructive pulmonary disease with (acute) exacerbation (principal); I11.9 Hypertensive heart disease without heart failure; E87.6 Hypokalemia; Z72.0 Tobacco use; Z79.899 Other long term (current) drug therapy; Z20.828 Contact with and (suspected) exposure to other viral communicable diseases
CPT/HCPCS: 0241U; 36000; 36415; 71045; 80053; 83880; 84145; 84484; 85025; 85027; 85379; 87040; 93005; 93041; 93268; 93306; 94640; 94760; 96365; 96367; 96374; 96375; 96376; 99284; G0378; J0360; J0456; J0696; J1940; J2930; J3475; J7609; A9270-GY